=== PATIENT | male | born 1995 | race Caucasian/White ===

== ENCOUNTER 2023-08-14 08:45 | Emergency (ER) | payer SELFPAY ==
[2023-08-14 08:56] VITALS: BP 167/109; PULSE 94; TEMP 36.7; O2SAT 97; BMI 26.9
--- NOTE | 2023-08-14 08:57 | ED_ITS ---
HPI - Eye Problem General: Chief complaint: Eye Problems Stated complaint: right eye pain Time Seen by Provider: 08/14/23 08:57 Source: patient Mode of arrival: ambulatory Limitations: no limitations History of Present Illness: Patient is a nice 27-year-old male who presents to ED today for evaluation of eye complaints. Patient states 2 days ago he was underneath his house messing around with some pipes as well as insulation and states the following morning he woke up and both of his eyes felt irritated. He states the following morning he woke up and his right eye was matted shut and he noticed some blurry vision, foreign body sensation, discomfort, and photophobia. He feels like left eye improved. He states this morning he woke up and discharge was gone, he no longer had a foreign body sensation but is still noticing some blurry vision and discomfort and photophobia. He feels like his left eye is continuing to improve. No visual loss. No severe headache. He denies using any type of chemical while he was working or having anything splashed into his eye. He is not a contact lens wearer. MD chief complaint: eye pain, eye redness and vision change Onset (ago): day(s) Onset description: gradual Duration: constant Location: right eye Eye Symptoms: pain, foreign body sensation, discharge and blurry vision Place: home Severity: moderate Associated symptoms: Reports fever(s) (states he awoke with a fever this AM); Denies headache(s), nausea, neck pain or vomiting Treatments Prior to Arrival: irrigated eye Related Data: Patient tetanus UTD: Yes Review of Systems Const: Reports: fever(s) (states he awoke with a fever this AM); Denies: chills, body aches, change in appetite, fatigue or malaise Eyes: Reports: change in vision, blurry vision, photophobia (yesterday), eye discomfort and eye discharge (yesterday morning); Denies: blind spots, eye redness, yellow eyes, floaters or seeing flashes ENMT: Denies: throat pain, odynophagia, ear or mastoid pain, nasal discharge, nasal congestion or sinus pain GI: Denies: nausea or vomiting Musc: Denies: neck pain Skin/Breast: Denies: rash Neuro: Denies: headache(s) Physical Exam Const: COMMON NORMALS: no acute distress, average body habitus, patient oriented x3, no limitations, healthy appearing, alert and well nourished HENMT: FACE & SINUS: normal facial exam Eye: COMMON NORMALS: Equal, round and reactive pupils present, EOMs intact bilaterally, conjunctivae normal and no scleral icterus GENERAL EYE: appearance normal, both eyes and all related structures and normal light reflex VISUAL TOTH: Yes other (no visual toth defects) ALIGNMENT: Yes alignment normal PERIORBITAL: periorbital findings normal EYELID: eyelids normal CONJUNCTIVA: Yes conjunctivae normal SCLERA: sclerae normal CORNEA: Yes fluorescein used (no corneal uptake; inferior conjunctival uptake ) PUPIL: Yes Equal, round and reactive pupils present DIRECT OPHTHALMOSCOPY: Yes normal light reflex Neuro: COMMON NORMALS: patient oriented x3 SENSORIUM/ORIENTATION: Yes alert Course Vital Signs: Vital signs: Vital Signs Temperature 98.1 F 08/14/23 08:56 Pulse Rate 90 08/14/23 09:14 Blood Pressure 172/114 08/14/23 09:14 Pulse Oximetry 98 08/14/23 09:14 Oxygen Delivery Me thod Room Air 08/14/23 09:14 MDM - Eye Problem Medical Decision Making Based on history and physical examination I do not have any concerns for infectious etiology such as a bacterial keratitis. There is no scleral or conjunctival laceration. He does have an area to his inferior conjunctiva with stain uptake consistent with abrasion. I suspect he had some insulation in his eye at one point that was irritating. No corneal involvement. No evidence of globe rupture or injury. Nothing to suggest a scleritis/episcleritis, iritis. Will go ahead and prescribe him erythromycin ointment that he was given prior to discharge. Recommend he continue this over the next 5 to 7 days. Return ED precautions given. Differential Diagnosis Likely corneal abrasion and conjunctivitis Medical Records I reviewed the patient's medical records. No radiology studies performed this visit Discharge Plan Discharge Patient Disposition: Home Clinical Impression: Abrasion of conjunctiva, right Qualifiers: Encounter type: initial encounter Qualified Code(s): S05.01XA - Injury of conjunctiva and corneal abrasion without foreign body, right eye, initial encounter Condition: Stable Prescriptions: No Action Prozac 40 mg Capsule 40 mg PO QAM Xanax 1 mg Tablet 1 mg PO DAILY PRN (Reason: SEVERE ANXIETY) olanzapine 2.5 mg Tablet 2.5 mg PO BEDTIME olmesartan 40 mg Tablet 40 mg PO QAM hydrochlorothiazide 12.5 mg Tablet 12.5 mg PO DAILY Discharge Orders: Discharge ED (Routine); Ordered 08/14/23 Ordered By: Eboni Presley Referrals: Johnson Lira APRN [Primary Care Provider] - Activity Restrictions/Additional Instructions: As we discussed you may continue to use the erythromycin ointment provided to you today 4 times daily into the eye over the next 5 to 7 days. You need to seek medical reevaluation for worsening visual changes, loss of vision, severe eye pain or foreign body sensation, severe headache, or any other concerns you may have. Coding Level of Care Code ED Order Packer Or Packager for Chelita Figueroa
[2023-08-14] MEDS: fluorescein 1 mg Strip EYE-RIGHT (09:10)
[2023-08-14] MEDS: tetracaine 0.5% Op Soln 4 mL Btl 1 DROP EYE-RIGHT (09:10)
[2023-08-14] MEDS: eye irrigation 30 mL Btl EYE-RIGHT (09:11)
[2023-08-14 09:14] VITALS: BP 172/114; PULSE 90; O2SAT 98
--- NOTE | 2023-08-14 09:28 | PC.PHAR ---
08/14/23 PT STATES FILLS AT [facility]. VERIFIED ALL MEDICATIONS AND STRENGTHS [place] [facility] [place].
[2023-08-14] MEDS: erythromycin Op Oint 1 gm 1 APPLIC EYE-RIGHT (09:40)
[2023-08-14 09:44] VITALS: BP 167/109; PULSE 85; O2SAT 98
== END 2023-08-14 09:46 | disposition home or self-care (01) ==
PROVIDERS: Emergency Provider Physician Assistant; PCP Nurse Practitioner Family
DX: S05.01XA Injury of conjunctiva and corneal abrasion without foreign body, right eye, initial encounter (principal); X58.XXXA Exposure to other specified factors, initial encounter
CPT/HCPCS: 99283

== ENCOUNTER 2023-09-19 10:28 | Emergency (ER) | payer OTHER, SELFPAY ==
[2023-09-19 10:34] VITALS: BP 149/108; PULSE 77; RESP 18; TEMP 37.3; O2SAT 98; BMI 25.0
--- NOTE | 2023-09-19 10:46 | CT_ITS ---
WS: [id number] CT LEFT KNEE WITH CONTRAST HISTORY: fb post knee Technique: All CT scans at [facility] use at least one of these dose optimization techniques: automated exposure control; mA and/or kV adjustment per patient size (includes targeted exams where dose is matched to clinical indication); or iterative reconstruction. DLP: 618.98 mGy.cm COMPARISON: None available. Contrast: Omnipaque 350; 100 mL. No acute fracture involving the LEFT knee. The bones are intact. There is a large amount of subcutaneous soft tissue air along the lateral knee. Air is centered along the biceps femoris muscle and deep to the iliotibial band. Air extends through the knee joint along a small proximal portion of the lateral head of the gastrocnemius. No foreign body is identified. The re is no large hematoma. No abscess collection or fluid pocket is identified. IMPRESSION: 1. No foreign body or abscess collection. 2. Large amount of subcutaneous soft tissue air over the lateral knee. Air is dissecting along the l ateral knee overlying the biceps femoris muscle and extending inferiorly over the lateral head of the gastrocnemius. This area is most likely from the recent puncture. Necrotizing fasciitis should be co nsidered. With the history of penetrating trauma this is most likely air from the penetrating trauma and not infection.
--- NOTE | 2023-09-19 10:49 | PC.PHAR ---
PT STS HE HAS STOPPED TAKING ALL HOME MEDICATIONS ( HCTZ 12.5 MG DAILY, OLANZAPINE 2.5 MG BEDTIME, OLMESARTAN 40 MG QAM, PROZAC 40 MG QAM, XANAX 1 MG DAILY PRN)
--- NOTE | 2023-09-19 10:54 | ED_ITS ---
HPI - Wound/Laceration General: Chief Complaint: Wound/Laceration Stated Complaint: piece of wood stuck and broke off in left leg Time Seen by Provider: 09/19/23 10:40 Source: patient Mode of arrival: ambulatory Limitations: no limitations History of Present Illness: 27-year-old male who states that he is a t work had a piece of lumber to hit him in the right knee and had a piece of splinter break off into his right posterior knee. He does have a anterior wound and then roughly 4 to 5 inches past he has a small piece of wood sticking out on an exit wound. He has no bleeding at this time he does have pain he rates a 4 out of 10 he is up-to-date on his tetanus. Associated symptoms: Denies chills, fever(s), nausea or vomiting Review of Systems Const: Denies: fever(s) or chills ENMT: Denies: throat pain or dental pain Card: Denies: chest pain Resp: Denies: dyspnea GI: Denies: abdominal pain, nausea, vomiting or diarrhea Musc: Reports: extremity pain; Denies: neck pain or back pain Skin/Breast: Denies: rash Neuro: Denies: headache(s) Physical Exam Const: COMMON NORMALS: no acute distress, patient oriented x3 and healthy appearing HENMT: COMMON NORMALS: normocephalic and atraumatic HEAD & SCALP: normocephalic and atraumatic Neck/C-Spine: COMMON NORMALS: full ROM and supple Chest: COMMONS NORMALS: normal inspection of the chest Resp: COMMON NORMALS: normal respiratory effort Cardio: COMMON NORMALS: regular rate RATE: regular rate Extremity: COMMON NORMALS: full ROM NARRATIVE EXTREMITY EXAM: Puncture wound noted to right posterior knee does have exit wound with a piece of wood sticking out no hematoma no bleeding at this time Neuro: COMMON NORMALS: patient oriented x3, moves all extremities and no focal motor deficits Psych: COMMON NORMALS: mental status grossly normal, Normal thought process present and cooperative THOUGHT PROCESS: Normal thought process present Skin: COMMON NORMALS: no rashes or lesions noted and no wounds GENERAL SKIN EXAM: no rashes or lesions noted Procedures Foreign Body Removal Time Out Performed: yes Site: left Description of foreign body: other (wood) Sedation/Analgesia: other (8cc 1% lidocaine) Technique: manual removal, removal with forceps and incision made to facilitate removal Confirmed by:: radiograph Complications: none Course Vital Signs: Vital signs: Vital Signs Temperature 99.2 F 09/19/23 10:34 Pulse Rate 89 09/19/23 11:07 Respiratory Rate 18 09/19/23 10:34 Blood Pressure 186/107 09/19/23 11:07 Pulse Oximetry 100 09/19/23 11:07 Oxygen Delivery Me thod Room Air 09/19/23 11:07 MDM - Wound/Laceration Medical Decision Making Patient presents here with a foreign body to his left posterior knee was able to pull out roughly 5 inch piece of wood did a CT afterwards he had no retained foreign body we will place him on antibiotics he is up-to-date on his tetanus he stable for discharge no signs of arterial injury or joint injury return if worsening. Medical Records I reviewed the patient's medical records. All radiology interpretation(s) finalized by discharge Discharge Plan Discharge Patient Disposition: Home Clinical Impression: Foreign body of knee Qualifiers: Encounter type: initial encounter Laterality: left Qualified Code(s): S80.252A - Superficial foreign body, left knee, initial encounter Condition: Stable Prescriptions: New cephalexin 500 mg capsule 500 mg PO TID 7 Days Qty: 21 0RF Discharge Orders: Discharge ED (Routine); Ordered 09/19/23 Ordered By: Ramon Turcios Discharge Diet: Advance as tolerated Discharge Activity: Resume usual activity Patient Instructions: Soft Tissue Foreign Body (ED) Coding Level of Care Code ED Chemical Plant Operator Supervisor for Chelita Figueroa
[2023-09-19] MEDS: ceFAZolin 2,000 MG in sodium chloride 0.9% (plus) 50 ML 100 MG IV (11:06)
[2023-09-19 11:07] VITALS: BP 186/107; PULSE 89; O2SAT 100
[2023-09-19 11:59] VITALS: PULSE 94; O2SAT 100
== END 2023-09-19 12:00 | disposition home or self-care (01) ==
PROVIDERS: Emergency Provider Emergency Medicine
DX: S80.252A Superficial foreign body, left knee, initial encounter (principal); W45.8XXA Other foreign body or object entering through skin, initial encounter; Y99.0 Civilian activity done for income or pay
CPT/HCPCS: 10120; 73701; 96365; 99285; J0690; Q9967

== ENCOUNTER → 2023-11-08 13:02 | Outpatient (BNVA) | payer OTHER, SELFPAY | PROVIDERS: Visit Provider Nurse Practitioner Family | DX: S49.92XA Unspecified injury of left shoulder and upper arm, initial encounter (principal); X58.XXXA Exposure to other specified factors, initial encounter | CPT/HCPCS: 73030 ==